=== PATIENT | male | born 1960 | race Caucasian/White ===

== ENCOUNTER 2022-08-23 06:41 | Day surgery (SDC) | payer BC ==
[2022-08-21 15:36] LABS: BASOPHILS % (AUTO) 0.7 % (0-1); EOSINOPHILS # (AUTO) 0.1 X10'3 (0-0.9); LYMPHOCYTES # (AUTO) 1.5 X10'3 (1.1-4.8); LYMPHOCYTES % (AUTO) 22.8 % (21-51); MEAN CORPUSCULAR HEMOGLOBIN 32.5 PG (27.0-31.0); MEAN CORPUSCULAR HGB CONC 34.4 g/dL (33.0-36.5); MEAN CORPUSCULAR VOLUME 94.4 FL (78-98); MEAN PLATELET VOLUME 9.3 FL (7.4-10.4); MONOCYTES # (AUTO) 0.7 X10'3 (0-0.9); MONOCYTES % (AUTO) 10.4 % (2-12); NEUTROPHILS # (AUTO) 4.3 X10'3 (1.8-7.7); NEUTROPHILS % (AUTO) 64.1 % (42-75); PRE OP HEMATOCRIT 43.4 % (42.0-52.0); PRE OP HEMOGLOBIN 14.9 g/dL (14.0-17.9); PRE OP PLATELET COUNT 156 X10'3 (140-440); RED CELL DISTRIBUTION WIDTH 13.6 % (11.5-14.5)
[2022-08-21 15:46] LABS: ALBUMIN 4.1 G/DL (3.4-5.0); ALBUMIN/GLOBULIN RATIO 1.3 (1.1-1.5); ALKALINE PHOSPHATASE 49 IU/L (46-116); BLOOD UREA NITROGEN 16 MG/DL (7-18); BUN/CREATININE RATIO 20.3 (10.0-20.0); CALCIUM 9.1 MG/DL (8.5-10.1); CHLORIDE 106 MMOL/L (99-107); CREATININE 0.79 MG/DL (0.60-1.10); PRE OP ALT 27 U/L (30-65); PRE OP ANION GAP 6 (8-16); PRE OP AST 21 U/L (10-37); PRE OP BILIRUB, TOTAL 0.3 MG/DL (0.0-1.0); PRE OP GLUCOSE 103 MG/DL (70-104); PRE OP POTASSIUM 4.1 MMOL/L (3.4-5.1); PRE OP SODIUM 139 MMOL/L (135-145); TOTAL CARBON DIOXIDE 27.2 MMOL/L (24-32); TOTAL PROTEIN 7.3 G/DL (6.4-8.2); eGFR > 90 ML/MIN
[2022-08-23] VITALS (12 sets, daily range): BP systolic 117–146; BP diastolic 77–92
[~2022-08-23] VITALS: Ht 180.3 cm; Wt 92.5 kg
[~2022-08-23 06:41] MED LIST: NO HOME MEDS; cefazolin 2gm/D5W 100mL 100 ML IV ONE; famotidine 20mg tablet PO ONE; ringers solution, lacted 1,000 ML IV SCH
[2022-08-23] MEDS ORDERED: BUPIVAcaine/PF 2.5 mg/ml (0.25%) 30ml vial ONE (06:53)
[2022-08-23 07:26] LABS: CLARITY,URINE CLEAR (Clear); COLOR,URINE YELLOW (Yellow); GLUCOSE, URINE NEGATIVE (Neg); KETONES,URINE NEGATIVE (Neg); LEUKOCYTE ESTERASE ,URINE NEGATIVE (Neg); NITRITES, URINE NEGATIVE (Neg); OCCULT BLOOD,URINE NEGATIVE (Neg); PROTEIN,URINE NEGATIVE (Neg); UROBILINOGEN,URINE 0.2 E.U/dL (0.2-1.0)
[2022-08-23 07:54] LABS: UA COLLECTION TYPE CLN CATCH MIDSTREAM
[2022-08-23] MEDS ORDERED: propofol inj 20 ML IV ONE (09:28)
[2022-08-23] MEDS ORDERED: rocuronium 10mg/ml inj IV ONE ×2 (09:28→09:29)
[2022-08-23] MEDS ORDERED: fentaNYL/PF 50MCG/1 ML 2ML syringe ONE (09:28)
[2022-08-23] MEDS ORDERED: sevoflurane 250ml liquid IH ONE (09:28)
[2022-08-23] MEDS ORDERED: midazolam 1 mg/ML 2ml injection ONE (09:28)
[2022-08-23] MEDS ORDERED: dexamethasone sod phosphate 4mg/ml inj. ONE (09:43)
[2022-08-23] MEDS ORDERED: ondansetron/PF 4mg/2ml inj IV PRN (10:40)
[2022-08-23] MEDS ORDERED: morphine 2 MG/ML inj. syringe IV PRN (10:40)
[2022-08-23] MEDS ORDERED: proCHLORperazine 10 MG/2 ml inj IV PRN (10:40)
[2022-08-23] MEDS ORDERED: meperidine/PF 25mg/ml syringe IV PRN ×2 (10:40)
[2022-08-23] MEDS ORDERED: ringers solution, lacted 1,000 ML IV SCH (10:40)
[2022-08-23] MEDS ORDERED: morphine 4 MG/ML inj SYRINge IV PRN (10:40)
[2022-08-23] MEDS ORDERED: ondansetron/PF 4mg/2ml inj ONE (11:14)
[2022-08-23] MEDS ORDERED: acetaminophen 1,000mg/100ml IV 100 ML IV ONE (11:15)
[2022-08-23] MEDS ORDERED: neostigmine methylsulfate 1 MG/ML 10ml vial ONE (11:15)
[2022-08-23] MEDS ORDERED: glycopyrrolate 0.2mg/ml inj ONE (11:15)
--- NOTE | 2022-08-23 11:29 | NUR ---
[facility], accompanied by Anesthesiologist DR PETER and report given by Anesthesiolgist. PT PRESENTS WITH PIV 20G LEFT HAND, 3 LAP SITES WITH DERMABOND, LT RUNNING AT 100MLS/HR, SPO2 100% 6L MASK, VSS. Addendum: 08/23/22 at 1140 by Susie Farrell RN, RN Amended: Links added.
[2022-08-23] MEDS: meperidine/PF 25mg/ml syringe IV PRN ×2 (11:43→12:16)
[2022-08-23] MEDS ORDERED: HYDROcodone/acetaminophen 10/325mg tab PO ONE (12:25)
--- NOTE | 2022-08-23 14:40 | NUR ---
PT U RINATED 95 MLS WITH BLADDER SCANNED 100. PT IS UP AND DRESSED, WALKING AND WILL TRY TO URINATE AGAIN. Addendum: 08/23/22 at 1442 by Susie Farrell RN, RN Amended: Links added.
--- NOTE | 2022-08-23 14:41 | NUR ---
PT IS SITTING UP O THE [place] EOF THE BED DRINKING WATER AND EATING JELLO. PT TOLERATING WELL. Addendum: 08/23/22 at 1442 by Susie Farrell RN, RN Amended: Links added.
--- NOTE | 2022-08-23 15:58 | NUR ---
PT IS UP TO THE BATHROOM AMBULATING WITH A STEADY GAIT, TRYING TO URINATE.
[2022-08-23] MEDS ORDERED: LidoCAINE 2% Topical Jelly 11mL syringe MM ONE (16:00)
--- NOTE | 2022-08-23 16:00 | NUR ---
PT DRANK APROX 2400 MLS OF WATER, PT IS NOW IN BATHROOM TRYING TO URINATE.
--- NOTE | 2022-08-23 16:09 | NUR ---
PT HAS URINATED APROX 75MLS.
--- NOTE | 2022-08-23 16:19 | NUR ---
I HAVE REVIEWED D/C INSTRUCTIONS WITH PATIENT and they have verbalized understanding patient d/c home with all belongings and family gave transport home. Addendum: 08/23/22 at 1714 by Susie Farrell RN, RN Amended: Links added.
== END 2022-08-23 16:19 | disposition home or self-care (01) ==
LOC: PAS 06:41
PROVIDERS: ATTEND Surgery
DX: K40.90 Unilateral inguinal hernia, without obstruction or gangrene, not specified as recurrent (principal); Z79.899 Other long term (current) drug therapy; Z98.890 Other specified postprocedural states
CPT/HCPCS: 36415; 49650; 80053; 81003; 82948; 85025; 93005; C1781; J0131; J0690; J1100; J2175; J2250; J2405; J2704; J2710; J3010; J3490; J7030; J7120; S2900; Z7506; Z7508; Z7512; A4215; A4615; A4618